=== PATIENT | female | born 1975 ===

== ENCOUNTER 2023-11-06 15:44 | Outpatient (CLI) | payer BC, SELFPAY ==
[2023-11-06 14:11] LABS: Abs Immature Grans 0.03 10^3/uL (0.0-0.06); Absolute Basophil Count 0.04 10^3/uL (0.0-0.2); Absolute Lymphocyte Count 3.08 10^3/uL (1.2-3.4); Absolute Monocyte Count 0.46 10^3/uL (0.1-0.8); Absolute Neutrophil Count 2.73 10^3/uL (1.2-6.7); Basophils % 0.6; Eosinophils % 4.5; HCT 40.1 % (36.0-46.0); HGB 13.2 g/dL (11.2-15.7); Immature Grans % 0.5; Lymphocytes % 46.4; MCH 26.2 pg (27.0-33.0); MCHC 32.9 % (32.0-36.0); MCV 80 fL (80-95); MPV 9.6 fL (8.0-11.0); Monocytes % 6.9; Neutrophils % 41.1; Platelet Count 271 10^3/uL (130-400); RBC 5.03 10^6/uL (3.93-5.22); RDW 12.5 % (11.7-14.6); RDW-SD 35.5 fL; WBC 6.64 10^3/uL (4.4-10.8)
[2023-11-06 15:05] LABS: ALT 25 U/L (14-59); AST 15 U/L (15-37); Alkaline Phosphatase 64 U/L (46-116); Anion Gap 7.2 mmol/L (3-11); BUN 7 mg/dL (7-18); Bilirubin, Total 0.4 mg/dL (0.2-1.0); CO2 29.8 mmol/L (21.0-32.0); CREATININE 0.7 mg/dL (0.55-1.02); Calcium 9.2 mg/dL (8.5-10.1); Calculated LDL 159 mg/dL (<100); Chloride 104 mmol/L (98-107); Cholesterol 227 mg/dL (<200); Estimated GFR 107.28 (mL/min/1.73m2); Glucose 110 mg/dL (74-106); HDL Cholesterol 51 mg/dL (40-60); Potassium 3.5 mmol/L (3.5-5.1); Sodium 141 mmol/L (136-145); TSH (W/Ref FT4) 2.35 uIU/mL (0.36-3.74); Total Protein 8.3 g/dL (6.4-8.2); Triglyceride 86 mg/dL (<150); Vitamin B12 934 pg/mL (193-986)
== END 2023-11-06 15:45 | disposition home or self-care (01) ==
LOC: LBO 15:44
PROVIDERS: Visit Provider Nurse Practitioner Family
DX: I10 Essential (primary) hypertension (principal); E78.5 Hyperlipidemia, unspecified; E03.9 Hypothyroidism, unspecified; E66.1 Drug-induced obesity
CPT/HCPCS: 36415; 80053; 80061; 82607; 84443; 85025